=== PATIENT | male | born 1995 | race Two or more races ===

== ENCOUNTER → 2018-01-09 | Day surgery (SDC) | payer BC ==
[~2018-01-09] MED LIST: BUPIVACAINE MPF 0.25% 30 ML VIAL.; DEXAMETHASONE SOD PHOS 20 MG/5 ML VIAL.; EPINEPHrine VIAL 30 MG/30 ML VIAL; IV RINGERS,LACTATED 1000ML 1,000 ML IV; LIDOCAINE 1% PF 2 ML VIAL. ID; LIDOCAINE 1% PF 30 ML VIAL.; LIDOCAINE 2% PF Vial for OR 5 ML VIAL.; MIDAZOLAM HCL/PF 2 MG/2 ML VIAL.; MORPHINE SULFATE 2 MG/ML DISP.SYRIN. IV; ONDANSETRON PF 4 MG/2 ML VIAL.; ONDANSETRON PF 4 MG/2 ML VIAL. IV; PROPOFOL 20 ML IV; SEVOFLURANE 61 TO 120 MINUTES. IH; fentaNYL PF VIAL 100 MCG/2 ML VIAL IV; fentaNYL PF VIAL 250 MCG/5 ML VIAL; oxyCODONE/APAP 5/325 1 TAB TABLET
[2018-01-09] MEDS: LIDOCAINE 1% PF 30 ML VIAL. INJ (12:52)
[2018-01-09] MEDS: BUPIVACAINE 0.5% 50 ML VIAL. INJ (12:52)
[2018-01-09] MEDS: fentaNYL PF VIAL 100 MCG/2 ML VIAL IV (14:25)
[2018-01-09] MEDS: IV RINGERS,LACTATED 1000ML 1,000 ML IV (14:25)
[2018-01-09] MEDS: PROCHLORPERAZINE 10 MG/2 ML VIAL. IV (14:25)
[2018-01-09] MEDS: oxyCODONE/APAP 5/325 1 TAB TABLET PO (15:04)
== END | disposition home or self-care (01) ==
LOC: SURG 09:50
DX: S83.211A Bucket-handle tear of medial meniscus, current injury, right knee, initial encounter (principal); S83.281A Other tear of lateral meniscus, current injury, right knee, initial encounter; W18.39XA Other fall on same level, initial encounter; Y93.66 Activity, soccer; Y92.89 Other specified places as the place of occurrence of the external cause; Y99.8 Other external cause status; Z79.899 Other long term (current) drug therapy; Z72.89 Other problems related to lifestyle
CPT/HCPCS: 29882; 97116-GP; 97162-GP; 97530-GP; A7015; C1769; C1782; J0171; J0690; J0780; J1100; J2001; J2250; J2405; J2704; J3010; J3490; J7120